=== PATIENT | male | born 1950 | race Caucasian/White ===

== ENCOUNTER 2021-02-28 11:33 | Day surgery (SDC) | payer OTHER, BC ==
[2021-02-28] MEDS ORDERED: BETAXOLOL HCL 0.25% OPHTHALMIC 10 ML DROPSBTL ONE (11:41)
[2021-02-28] MEDS ORDERED: TETRACAINE 0.5% OPHTH SOLN 2 ML BOTTLE ONE (11:42)
[2021-02-28] MEDS ORDERED: NEO/POLYMYX B SULF/DEXAMETH OPHTHALMIC 5ML BOTTLE ONE (11:42)
[2021-02-28] MEDS ORDERED: EPI-SHUGARCAINE (EPINEPHRINE 0.025% & LIDOCAINE-PF 0.75%) 4ML ONE (11:42)
[2021-02-28] MEDS ORDERED: POVIDONE-IODINE 5% OPHTHALMIC PREP 30 ML SOLUTION ONE (11:42)
[2021-02-28] MEDS ORDERED: CYCLOPENTOLATE HCL 1% OPHTH SOLN 2 ML BOTTLE ONE (11:52)
[2021-02-28] MEDS ORDERED: OFLOXACIN 0.3% OPHTHALMIC SOLUTION 5 ML BOTTLE ONE (11:52)
[2021-02-28] MEDS ORDERED: KETOROLAC TROMETHAMINE 0.5% EYE DROP 1 DROP DROPS ONE (11:53)
[2021-02-28] MEDS ORDERED: PHENYLEPHRINE 2.5% OPHTH SOLN 15 ML BOTTLE ONE (11:53)
[2021-02-28] MEDS ORDERED: TROPICAMIDE 1% OPHTH SOLN 15 ML BOTTLE ONE (11:53)
[2021-02-28] MEDS: KETOROLAC TROMETHAMINE 0.5% EYE DROP 1 DROP DROPS OD SCH ×5 (12:15→12:35)
[2021-02-28] MEDS: CYCLOPENTOLATE HCL 1% OPHTH SOLN 2 ML BOTTLE OD SCH ×5 (12:15→12:35)
[2021-02-28] MEDS: PHENYLEPHRINE 2.5% OPHTH SOLN 15 ML BOTTLE OD SCH ×5 (12:15→12:35)
[2021-02-28] MEDS: TROPICAMIDE 1% OPHTH SOLN 15 ML BOTTLE OD SCH ×5 (12:15→12:35)
[2021-02-28] MEDS: OFLOXACIN 0.3% OPHTHALMIC SOLUTION 5 ML BOTTLE OD SCH ×5 (12:15→12:35)
[2021-02-28] MEDS ORDERED: BACITRACIN/POLYMYXIN OPH OINT 3.5 GM TUBE ONE (12:23)
[2021-02-28] MEDS ORDERED: MIDAZOLAM HCL 2 MG/2 ML SINGLE DOSE VIAL ONE (14:16)
[2021-02-28] MEDS ORDERED: ACETAMINOPHEN 325 MG TABLET (FP) PO PRN (15:21)
== END 2021-02-28 16:13 | disposition home or self-care (01) ==
LOC: FASU 11:33
PROVIDERS: ATTEND Ophthalmology
PROC: 08RJ3JZ Replacement of Right Lens with Synthetic Substitute, Percutaneous Approach (ICD-10-PCS; principal; 2021-02-28 14:42)
DX: H26.9 Unspecified cataract (principal); H57.03 Miosis

== ENCOUNTER 2021-03-14 08:32 | Day surgery (SDC) | payer OTHER, BC ==
[2021-03-14] MEDS ORDERED: OFLOXACIN 0.3% OPHTHALMIC SOLUTION 5 ML BOTTLE ONE (08:40)
[2021-03-14] MEDS ORDERED: PHENYLEPHRINE 2.5% OPHTH SOLN 15 ML BOTTLE ONE (08:40)
[2021-03-14] MEDS ORDERED: CYCLOPENTOLATE HCL 1% OPHTH SOLN 2 ML BOTTLE ONE (08:40)
[2021-03-14] MEDS ORDERED: KETOROLAC TROMETHAMINE 0.5% EYE DROP 1 DROP DROPS ONE (08:40)
[2021-03-14] MEDS ORDERED: TROPICAMIDE 1% OPHTH SOLN 15 ML BOTTLE ONE (08:41)
[2021-03-14 09:00] VITALS: PULSE 50
[2021-03-14] MEDS: OFLOXACIN 0.3% OPHTHALMIC SOLUTION 5 ML BOTTLE OS SCH ×5 (09:05→09:25)
[2021-03-14] MEDS: TROPICAMIDE 1% OPHTH SOLN 15 ML BOTTLE OS SCH ×5 (09:05→09:25)
[2021-03-14] MEDS: CYCLOPENTOLATE HCL 1% OPHTH SOLN 2 ML BOTTLE OS SCH ×5 (09:05→09:25)
[2021-03-14] MEDS: PHENYLEPHRINE 2.5% OPHTH SOLN 15 ML BOTTLE OS SCH ×5 (09:05→09:25)
[2021-03-14] MEDS: KETOROLAC TROMETHAMINE 0.5% EYE DROP 1 DROP DROPS OS SCH ×5 (09:05→09:25)
[2021-03-14] MEDS ORDERED: BACITRACIN/POLYMYXIN OPH OINT 3.5 GM TUBE ONE (10:16)
[2021-03-14] MEDS ORDERED: TETRACAINE 0.5% OPHTH SOLN 2 ML BOTTLE ONE (10:16)
[2021-03-14] MEDS ORDERED: EPI-SHUGARCAINE (EPINEPHRINE 0.025% & LIDOCAINE-PF 0.75%) 4ML ONE (10:16)
[2021-03-14] MEDS ORDERED: BETAXOLOL HCL 0.25% OPHTHALMIC 10 ML DROPSBTL ONE (10:16)
[2021-03-14] MEDS ORDERED: POVIDONE-IODINE 5% OPHTHALMIC PREP 30 ML SOLUTION ONE (10:16)
[2021-03-14] MEDS ORDERED: NEO/POLYMYX B SULF/DEXAMETH OPHTHALMIC 5ML BOTTLE ONE (10:17)
[2021-03-14] MEDS ORDERED: MIDAZOLAM HCL 2 MG/2 ML SINGLE DOSE VIAL ONE (10:29)
[2021-03-14] MEDS ORDERED: ACETAMINOPHEN 325 MG TABLET (FP) PO PRN (11:49)
[2021-03-14 11:59] VITALS: BMI 19.9
[2021-03-14 12:01] VITALS: TEMP 97.7
[2021-03-14 12:23] VITALS: BP 106/57
== END 2021-03-14 12:45 | disposition home or self-care (01) ==
LOC: FASU 08:32
PROVIDERS: ATTEND Ophthalmology
PROC: 08RK3JZ Replacement of Left Lens with Synthetic Substitute, Percutaneous Approach (ICD-10-PCS; principal; 2021-03-14 11:03)
DX: H26.9 Unspecified cataract (principal)